=== PATIENT | female | born 1965 | race Caucasian/White ===

== ENCOUNTER 2024-06-10 06:45 | Day surgery (SDC) | payer OTHER ==
[~2024-06-10] VITALS: Ht 149.9 cm; Wt 58.8 kg
[~2024-06-10 06:45] MED LIST: IRON65TA2 PO; VITA100093 PO; VITACAP8 PO
[2024-06-10] MEDS: POLYSPORIN TOPICAL OINTMENT 15GM As Ordered ONE (06:54)
[2024-06-10] MEDS ORDERED: NS (Normal Saline) 0.9% 1,000 ML IV SCH (06:55)
[2024-06-10] MEDS ORDERED: fentaNYL 100 MCG/2 ML INJECTION As Ordered ONE (07:14)
[2024-06-10] MEDS ORDERED: LIDOCAINE 2% 100MG/5ML SDV (FOR ANES.) As Ordered ONE (07:15)
[2024-06-10] MEDS ORDERED: MIDAZOLAM INJ 2MG/2ML VIAL As Ordered ONE (07:15)
[2024-06-10] MEDS ORDERED: ONDANSETRON 4MG 2ML VIAL As Ordered ONE (07:15)
[2024-06-10] MEDS ORDERED: ACETAMINOPHEN 1000MG/100ML IV BAG As Ordered ONE (07:15)
[2024-06-10] MEDS ORDERED: KETOROLAC 60MG 2ML VIAL As Ordered ONE (07:15)
[2024-06-10] MEDS: LR 1,000 ML IV SCH (07:24)
[2024-06-10] MEDS ORDERED: propofoL 200 MG/20 ML VIAL As Ordered ONE (09:13)
[2024-06-10] MEDS ORDERED: KETAMINE HCL 200MG/20ML VIAL As Ordered ONE (09:18)
[2024-06-10 09:32] VITALS: BP 135/65; TEMP 97.4; O2SAT 97
== END 2024-06-10 10:32 | disposition home or self-care (01) ==
LOC: M SDC 06:45
PROVIDERS: ATTEND Orthopaedic Surgery Hand Surgery
DX: G56.01 Carpal tunnel syndrome, right upper limb (principal); Z85.3 Personal history of malignant neoplasm of breast; Z92.3 Personal history of irradiation; Z88.8 Allergy status to other drugs, medicaments and biological substances; Z79.899 Other long term (current) drug therapy
CPT/HCPCS: 29848; J0131; J0665; J1100; J1885; J2250; J2405; J3010